=== PATIENT | male | born 1965 | race Caucasian/White ===

== ENCOUNTER → 2023-06-29 07:58 | Outpatient (REF) | payer OTHER, SELFPAY | LOC: RAD 07:58 | PROVIDERS: ATTENDING PHYSICIAN Surgery Vascular Surgery; FAMILY PHYSICIAN Family Medicine | DX: I77.9 Disorder of arteries and arterioles, unspecified (principal) | CPT/HCPCS: 93922; 93925; 93970 ==

== ENCOUNTER → 2024-01-05 10:03 | Outpatient (REF) | payer OTHER, SELFPAY | LOC: RAD 10:03 | PROVIDERS: ATTENDING PHYSICIAN Surgery Vascular Surgery | DX: I77.9 Disorder of arteries and arterioles, unspecified (principal) | CPT/HCPCS: 93922; 93925 ==

== ENCOUNTER 2024-11-21 15:17 | Emergency (ER) | payer OTHER, SELFPAY ==
[2024-11-21 15:26] VITALS: BP 145/93
[2024-11-21 16:39] VITALS: BP 145/93; PULSE 68; O2SAT 97
--- NOTE | 2024-11-21 17:57 | ED.GENMED ---
History of Present Illness
General
Chief Complaint: Headache
Time Seen by Provider: 11/21/24 16:17
History of Present Illness
History of Present Illness:
Patient is a 59-year-old male with history of hypertension, hyperlipidemia presenting to the emergency department with dizziness. Patient states that last night he was watching his TV when he had dizziness that he described as room spinning. Only
occurred when he tilted his head up to look at the TV. Every time he looked back down it would improve and then worsen again when he looked in a certain position. He did have a few episodes of emesis last night. This morning he woke up and did
have the dizziness with the same position. However he also had his headache. He has been getting headaches recently. It is worse with coughing and when he bends down to pick something up. He also has been having chronic tinnitus in the right ear
and has been more pronounced. He did recently get over:. He does feel slightly congested. No numbness tingling. No weakness. No difficulty walking or issues with his gait. No word finding difficulties. No vision changes
Phy Exam
Physical Exam
Physical Exam:
GENERAL: in no acute distress
HEENT: normocephalic, extraocular movements intact, moist oral mucosa
NECK: normal inspection
RESPIRATORY: no respiratory distress, clear to auscultation bilaterally
CARDIOVASCULAR: regular rate and rhythm
ABDOMEN/: soft, non-distended, non-tender to palpation, no rebound or guarding
EXTREMITIES: non-tender, no edema/swelling
NEUROLOGIC: alert and oriented x 3, cranial nerves II-XII intact, right upper extremity strength 5/5, left upper extremity strength 5/5, right lower extremity strength 5/5, left lower extremity strength 5/5, normal sensation to light touch, normal
[id number] and [id number], gait not tested formally
SKIN: warm
Course
Orders/Labs/Results
Orders:
Orders
11/21/24 15:32
CT Head W/o Iv Contrast Urgent
Comment:
Reason For Exam: headache, dizziness
11/21/24 16:16
Pt Eval And Treat Urgent
Activity Level: Out of Bed-Early Mobility
Vital Signs
Initial and Last Documented VS:
Initial Vital Signs
Temp Pulse Resp BP Pulse Ox
98.1 F 68 18 145/93 97
11/21/24 15:26 11/21/24 15:26 11/21/24 15:26 11/21/24 15:26 11/21/24 15:26
Last Documented Vital Signs
Temp Pulse Resp BP Pulse Ox
98.1 F 68 18 145/93 97
11/21/24 15:26 11/21/24 15:11/21/24 15:11/21/24 15:11/21/24 15:26
MDM/Problems Addressed
Differential Diagnosis Includes:
Patient is a 59-year-old man presenting to the emergency department with vertigo. On arrival vitals unremarkable and exam is reassuring. He does state that he has had reproduction of the symptoms when he was going up during the CAT scanner.
Likely peripheral vertigo such as BPPV. Could be mass given the headache with position though less likely. History and exam not consistent with central vertigo as it is paroxysmal and intermittent and aggravated with position with associated
nausea and tinnitus. CT scan per my interpretation with no obvious mass. Per the official read suspicious for cavum vergae cyst of midline versus intraventricular arachnoid cyst. Patient advised of these findings and will follow-up with the MRI.
Patient will also follow-up with neurology. Strict return precautions given especially about increased ICP given the abnormal CT. Will discharge with meclizine.
*Pulse Oximetry
SaO2: 97
Oxygen Mode of Delivery: Room air
Patient hypoxic: no
*Critical Care Note
Total Time (30-74mins, 75-104mins- exclusive of procedures): Not Applicable
ED Attending Note
-
Portions of this chart may have been created with voice recognition software.� Occasional wrong word or��sound alike� substitutions may have occurred due to the inherent limitations of voice recognition software.
Discharge Plan
Departure
Patient Disposition: Home (Routine Discharge)
Date of Disposition: 11/21/24
Time of Disposition: 17:55
Patient with high blood pressure during this ER visit?: Yes
Discharge Problem:
Vertigo
Instructions: Exercises (maneuvers) for benign paroxysmal positional vertigo
Prescriptions:
New
meclizine 25 mg tablet
25 mg PO BID PRN (Reason: dizziness) Qty: 30 0RF
No Action
cilostazol 100 mg Tablet
100 mg PO BID
atorvastatin 20 mg Tablet
20 mg PO DAILY
enalapril maleate 10 mg Tablet
10 mg PO DAILY
allopurinol 100 mg Tablet
100 mg PO BID
levothyroxine [Synthroid] 100 mcg Tablet
100 mcg PO DAILY
aspirin 81 mg Tablet,Delayed Release (Dr/Ec)
81 mg PO DAILY
Referrals:
Ashley Garcia MD [Non-Admitting Privileges, Psychiatry] - Call in 1-3 days for appt
Gerber Kim MD [Family Provider, Family Practice]
Activity Restrictions/Additional Instructions:
When a patient comes into the Emergency Department, many diagnostic studies such as x-rays & CT Scans are completed to identify injuries. During these diagnostic studies, there are sometimes things like cysts, nodules, tumors, etc. that are
'incidentally found' and seen on these studies. No further workup was required during your hospitalization for your incidental findings, but please follow-up with your Primary Care Physician/Specialist regarding the below incidental findings. Your
Primary Care Physician/Specialist will instruct you/guide you through any further workup.
Your incidental findings:
CT findings suspicious for a cavum vergae cyst at midline. An intraventricular arachnoid cyst would be an alternative consideration. No prior imaging of the brain is currently available. A follow-up brain MRI could be considered for further
evaluation.
You were seen in the Emergency Department today for vertigo. While you were here we prescribed you a medicine called meclizine. Please take it as prescribed. Please follow-up with a neurologist as discussed.
We would like for you to follow up with your primary care physician for further evaluation. If you experience fever, worsening of your symptoms, or develop any other new or concerning symptoms, please return to the Emergency Department immediately.
Please see the attached sheet for additional information.
Interventions
Interventions:
*Risk Screen - Suicide Last Done: 11/21/24 15:26
*General Assessment Last Done: 11/21/24 15:26
*ED COVID-19 Vaccine History Last Done: 11/21/24 15:26
ED- Neurological Assessment Last Done: 11/21/24 17:23
Discharge Date and Time
Print Language: SERBIAN
== END 2024-11-21 18:07 | disposition home or self-care (01) ==
LOC: EMR 15:17
PROVIDERS: EMERGENCY PHYSICIAN Student in an Organized Health Care Education/Training Program; FAMILY PHYSICIAN Family Medicine
DX: R42 Dizziness and giddiness (principal); R11.10 Vomiting, unspecified; R51.9 Headache, unspecified; H93.11 Tinnitus, right ear; I10 Essential (primary) hypertension; E78.5 Hyperlipidemia, unspecified; Z79.82 Long term (current) use of aspirin; Z91.048 Other nonmedicinal substance allergy status
CPT/HCPCS: 99284; 70450

== ENCOUNTER → 2025-01-17 07:58 | Outpatient (REF) | payer OTHER, SELFPAY | LOC: RAD 07:58 | PROVIDERS: ATTENDING PHYSICIAN Registered Nurse; FAMILY PHYSICIAN Family Medicine | DX: I77.9 Disorder of arteries and arterioles, unspecified (principal) | CPT/HCPCS: 93922; 93925 ==